=== PATIENT | female | born 1960 | race African-American/Black ===

== ENCOUNTER 2024-01-20 06:27 | Inpatient (IN) | payer OTHER ==
[~2024-01-20] VITALS: Ht 170.2 cm; Wt 88.4 kg
[2024-01-20] MEDS ORDERED: fentaNYL CITRATE 5 ML ONE (07:14)
[2024-01-20] MEDS ORDERED: NITROGLYCERIN 0.4 MG SL TAB SL PRN (11:30)
[2024-01-20] MEDS ORDERED: MORPHINE SULFATE INJ 2 MG/ml SYRG IV PRN (11:30)
[2024-01-20] MEDS: ACCU-CHEK COMFORT CURVE STRIP VI ONE (12:00)
[2024-01-20] MEDS: ONDANSETRON HCL 4 MG/2 ML VIAL IV ONE (12:00)
[2024-01-20] MEDS ORDERED: HYDROmorphone HCL 2 MG/ML VL/or syr IV PRN (12:00)
[2024-01-20] MEDS: LIDOCAINE 1% HCL (LOCAL ANESTH.) INJ 20ML MDV ONE (15:40)
[2024-01-20] MEDS: TRANEXAMIC ACID 20 ML ONE (15:40)
[2024-01-20 16:55] VITALS: BP 121/68; PULSE 72; RESP 18; RESP 98; TEMP 97.6; O2SAT 98
[2024-01-20 17:00] VITALS: BP 121/68; PULSE 72; RESP 18; TEMP 97.6; O2SAT 98
[2024-01-20] MEDS: MORPHINE SULFATE INJ 2 MG/ml SYRG IV PRN (17:22)
[2024-01-20 20:00] VITALS: PULSE 69; PULSE 76; RESP 15; O2SAT 98
[2024-01-20] MEDS: CYCLOBENZAPRINE HCL 10 MG TAB PO SCH (20:39)
[2024-01-20] MEDS: ceFAZolin 1GM/50ML 50 ML IV SCH (20:48)
[2024-01-20] MEDS: DOCUSATE SOD 100 MG CAP PO SCH (20:53)
[2024-01-20 21:27] VITALS: BP 117/56; PULSE 69; RESP 15; TEMP 98; O2SAT 98
[2024-01-20] MEDS: D5W/SOD CHLO 0.9% 1,000 ML IV SCH (21:30)
[2024-01-20] MEDS: HYDROcodone-ACET 10/325MG TAB PO PRN (22:27)
[2024-01-21] VITALS (8 sets, daily range): BP systolic 111–139; BP diastolic 55–77; PULSE 73–93; RESP 18; TEMP 98.2–99.3; O2SAT 0–96
[2024-01-21] MEDS: ONDANSETRON HCL 4 MG/2 ML VIAL IV PRN (05:11)
[2024-01-21] MEDS ORDERED: LATA0.008 EACHEYE (05:22)
[2024-01-21] MEDS ORDERED: LOSA-534 PO (05:22)
[2024-01-21] MEDS ORDERED: HYDR25TA5 PO (05:22)
[2024-01-21] MEDS ORDERED: OMEP1CAP70 PO (05:22)
[2024-01-21] MEDS: ACETAMINOPHEN 325 MG TAB PO PRN (13:36)
[2024-01-21] MEDS ORDERED: CYCL-839 PO (15:27)
[2024-01-21] MEDS ORDERED: BACL10TA PO (15:27)
[2024-01-21] MEDS ORDERED: HYDR-4072 PO (15:27)
[2024-01-22] VITALS (9 sets, daily range): BP systolic 129–160; BP diastolic 55–84; PULSE 53–94; RESP 17–20; TEMP 96.6–98.9; O2SAT 92–100
[2024-01-22 12:26] LABS: Basophils # (auto) 0 10 ^3/uL (0-0.2); Basophils % (auto) 0.4 % (0.0-2.0); Eosinophils # (auto) 0.1 10 ^3/uL (0-0.8); Eosinophils % (auto) 1.3 % (0.0-7.0); Hematocrit 33.9 % (36.0-46.0); Hemoglobin 11.3 g/dL (12.2-16.2); Lymphocytes # (auto) 1.2 10 ^3/uL (0.4-5.4); Lymphocytes % (auto) 11.9 % (10.0-50.0); Mean Corpuscular Hemoglobin 28.9 pg (28.0-32.0); Mean Corpuscular Hgb Conc. 33.5 g/dL (32.0-36.0); Mean Corpuscular Volume 86.3 fL (80.0-100.0); Monocytes # (auto) 0.6 10 ^3/uL (0-1.3); Neutrophils # (auto) 7.9 10 ^3/uL (1.6-8.6); Neutrophils % (auto) 80.4 % (37.0-80.0); Nucleated Red Blood Cells % 0.1 %; Platelet Count (auto) 227 10^3/uL (140-450); Red Blood Cells 3.92 10^6/uL (4.0-5.20); Red Cell Distribution Width 14.2 % (11.8-14.3); White Blood Cell 9.8 10^3/uL (4.4-10.8)
[2024-01-22 13:00] LABS: Alanine Aminotransferase 16 U/L (7-40); Albumin 3.7 g/dL (3.2-4.8); Alkaline Phosphatase 63 U/L (46-116); Anion Gap 5 (5-15); Aspartate Aminotransferase 29 U/L (13-40); BUN/Creatinine Ratio 8.5 (10.0-20.0); Bilirubin, Total 0.3 mg/dL (0.2-1.0); Blood Urea Nitrogen 6 mg/dL (9-23); Calcium 9.2 mg/dL (8.7-10.4); Carbon Dioxide 27 mmol/L (20-30); Chloride 111 mmol/L (98-107); Glucose 120 mg/dL (74-106); Magnesium 1.9 mg/dL (1.6-2.6); Potassium 3.5 mmol/L (3.5-5.1); Sodium 143 mmol/L (136-145); Total Protein 6.1 g/dL (5.7-8.2)
[2024-01-22] MEDS: MAGNESIUM SULFATE 1GM/100ML 100 ML IV SCH (16:39)
[2024-01-22] MEDS: POTASSIUM CHL 20 Meq TABLET PO ONE (16:39)
[2024-01-23] VITALS (8 sets, daily range): BP systolic 125–157; BP diastolic 63–80; PULSE 61–109; RESP 16–20; TEMP 97.9–99.4; O2SAT 91–100
[2024-01-23] MEDS: PANTOPRAZOLE 40 MG TAB PO SCH (05:39)
[2024-01-23] MEDS: hydroCHLOROthiazide 25 MG TAB PO SCH (09:29)
[2024-01-23] MEDS: LOSARTAN POTASSIUM 50 MG TAB PO SCH (09:30)
[2024-01-24] VITALS (8 sets, daily range): BP systolic 111–144; BP diastolic 61–78; PULSE 67–154; RESP 17–20; TEMP 97.9–99.1; O2SAT 93–97
[2024-01-24 10:21] LABS: Chloride 109 mmol/L (98-107); Potassium 3.4 mmol/L (3.5-5.1); Sodium 143 mmol/L (136-145)
[2024-01-24 10:22] LABS: Anion Gap 7 (5-15); Carbon Dioxide 27 mmol/L (20-30)
[2024-01-24 10:26] LABS: Basophils # (auto) 0 10 ^3/uL (0-0.2); Basophils % (auto) 0.4 % (0.0-2.0); Eosinophils # (auto) 0.3 10 ^3/uL (0-0.8); Eosinophils % (auto) 3.3 % (0.0-7.0); Hemoglobin 11.3 g/dL (12.2-16.2); Lymphocytes # (auto) 1.8 10 ^3/uL (0.4-5.4); Lymphocytes % (auto) 18.6 % (10.0-50.0); Mean Corpuscular Hgb Conc. 33.4 g/dL (32.0-36.0); Mean Corpuscular Volume 86.9 fL (80.0-100.0); Monocytes # (auto) 0.7 10 ^3/uL (0-1.3); Monocytes % (auto) 7.4 % (0.0-12.0); Neutrophils # (auto) 6.8 10 ^3/uL (1.6-8.6); Neutrophils % (auto) 70.3 % (37.0-80.0); Nucleated Red Blood Cells % 0.1 %; Platelet Count (auto) 255 10^3/uL (140-450); Red Blood Cells 3.91 10^6/uL (4.0-5.20); White Blood Cell 9.7 10^3/uL (4.4-10.8)
[2024-01-24 10:27] LABS: BUN/Creatinine Ratio 10.3 (10.0-20.0); Blood Urea Nitrogen 7 mg/dL (9-23); Glucose 104 mg/dL (74-106); LDL Cholesterol 82 mg/dL (< 100); Triglycerides 140 mg/dL (< 150)
[2024-01-24 10:29] LABS: Cholesterol 156 mg/dL (< 200); HDL Cholesterol 43 mg/dL (40-59)
[2024-01-24 12:13] LABS: Urine Bacteria None Seen /hpf (None Seen)
[2024-01-24 12:29] LABS: Urine Blood 1+ /uL (Negative); Urine Clarity Clear (Clear); Urine Color Light-Yellow (Yellow); Urine Protein, UAD Negative (Negative); Urine Specific Gravity 1.011 (1.001-1.035); Urine Urobilinogen Normal (Negative); Urine WBC 3 /hpf (0 - 5)
[2024-01-24] MEDS: POTASSIUM CHL 20 Meq TABLET PO ONE (12:56)
[2024-01-24] MEDS: AMIODARONE HCL 200 MG TAB PO ONE (12:57)
[2024-01-24] MEDS: APIXABAN 5 MG TAB PO ONE (12:57)
[2024-01-24] MEDS: METOPROLOL SUCCINATE XL 50 MG TAB PO ONE (12:58)
[2024-01-24] MEDS: POLYETHYLENE GLYCOL 17 GM PWDR PO ONE (12:59)
[2024-01-24] MEDS: AMIODARONE HCL 200 MG TAB PO SCH (21:41)
[2024-01-24] MEDS: APIXABAN 5 MG TAB PO SCH (21:41)
[2024-01-25] VITALS (7 sets, daily range): BP systolic 108–137; BP diastolic 54–89; PULSE 63–96; RESP 15–18; TEMP 97.6–98.9; O2SAT 95–97
[2024-01-25 06:27] LABS: Anion Gap 10 (5-15); Carbon Dioxide 24 mmol/L (20-30); Chloride 108 mmol/L (98-107); Potassium 3.9 mmol/L (3.5-5.1); Sodium 142 mmol/L (136-145)
[2024-01-25 06:28] LABS: Calcium 9.4 mg/dL (8.7-10.4)
[2024-01-25 06:33] LABS: BUN/Creatinine Ratio 15.9 (10.0-20.0); Blood Urea Nitrogen 10 mg/dL (9-23); Glucose 90 mg/dL (74-106)
[2024-01-25] MEDS: POLYETHYLENE GLYCOL 17 GM PWDR PO PRN (09:30)
[2024-01-25] MEDS: METOPROLOL SUCCINATE XL 50 MG TAB PO SCH (09:30)
[2024-01-25] MEDS ORDERED: METO-6 PO (12:02)
[2024-01-25] MEDS ORDERED: APIX5TAB PO (12:02)
[2024-01-25] MEDS ORDERED: AMIO200T33 PO (12:02)
[2024-01-26] MEDS ORDERED: METO25TA36 PO (09:45)
== END 2024-01-25 17:10 | disposition home or self-care (01) | DRG 460 ==
LOC: SUR 06:27 → TELE 11:30 → TELE-WESTW 15:49
PROVIDERS: ADMIT Anesthesiology; ATTEND Internal Medicine
PROC: 0SG10AJ Fusion of 2 or more Lumbar Vertebral Joints with Interbody Fusion Device, Posterior Approach, Anterior Column, Open Approach (ICD-10-PCS; principal; 2024-01-20)
PROC: 00NY0ZZ Release Lumbar Spinal Cord, Open Approach (ICD-10-PCS; 2024-01-20)
PROC: 01NB0ZZ Release Lumbar Nerve, Open Approach (ICD-10-PCS; 2024-01-20)
PROC: 4A11X4G Monitoring of Peripheral Nervous Electrical Activity, Intraoperative, External Approach (ICD-10-PCS; 2024-01-20)
DX: M48.062 Spinal stenosis, lumbar region with neurogenic claudication (principal); I47.10 Supraventricular tachycardia, unspecified; I10 Essential (primary) hypertension; E66.9 Obesity, unspecified; R73.03 Prediabetes; K21.9 Gastro-esophageal reflux disease without esophagitis; M51.16 Intervertebral disc disorders with radiculopathy, lumbar region; I48.0 Paroxysmal atrial fibrillation; E87.6 Hypokalemia; Z87.891 Personal history of nicotine dependence; Z80.0 Family history of malignant neoplasm of digestive organs; Z68.29 Body mass index [BMI] 29.0-29.9, adult
CPT/HCPCS: 36415; 72100; 73502; 76000; 80048; 80053; 80061; 81001; 82962; 83036; 83735; 84443; 85025; 85610; 85730; 86850; 86900; 86901; 93306; 97110; 97116; 97163; 97530; G0378; J0131; J1885; J1956; J2001; J2250; J2405; J2704; J7042